=== PATIENT | female | born 1930 | race Caucasian/White ===

== ENCOUNTER 2019-04-27 12:58 | Inpatient (IN) ==
[2019-04-27 15:20] LABS: BASO# 0.01 X1000 (0.0-0.2); BASO% 0.1 % (0.0-0.8); EOS# 0.01 X1000 (0.0-0.7); EOS% 0.1 % (0.0-10.0); HEMATOCRIT 34.7 % (37.0-47.0); HEMOGLOBIN 11.1 g/dL (12.0-16.0); IMM GRAN# 0.01 X1000 (0.0-0.04); IMM GRAN% 0.1 % (0.0-0.5); LYMPH# 1.05 X1000 (1.2-3.4); LYMPH% 10.6 % (20.5-51.1); MCH 29.6 PG (27-31); MCV 92.5 FL (81-99); MONO# 0.66 X1000 (0.11-0.59); MONO% 6.6 % (1.7-9.3); MPV 10.6 FL (7.4-10.4); NEUT# 8.21 X1000 (1.4-6.5); NEUT% 82.5 % (42.2-75.2); PLT 178 X1000 (130-400); RBC 3.75 XMIL (4.2-5.4); RDW 13.6 % (11.5-14.5); WBC 9.95 X1000 (4.8-10.8)
[2019-04-27 15:44] LABS: ALBUMIN 4.8 g/dL (3.5-5.0); CALCIUM 10.1 mg/dL (8.8-10.2); CREATININE 1.9 mg/dL (0.5-0.9); POTASSIUM 4.5 mmol/L (3.5-5.1); TOTAL BILIRUBIN 0.4 mg/dL (0.20-1.00); TOTAL PROTEIN 7.6 g/dL (6.3-8.3)
--- NOTE | 2019-04-27 16:05 | PROVIDER DOCUMENTATION ---
This chart was entered by Libby Alfaro Scribe, acting as scribe for Renuka Monsalve MD. HPI-Abdominal Pain/GI Problem - General Chief Complaint: Abdominal Pain Stated Complaint: D/V Time Seen by Provider: 04/27/19 14:41 Source: patient, family Allergies/Adverse Reactions: Patient Allergies Allergy/AdvReac Type Severity Reaction Status Date / Time cyclobenzaprine Allergy Unknown Verified 04/27/19 13:23 [From Flexeril] lincomycin [From Lincocin] Allergy Unknown Verified 04/27/19 13:23 tetracycline Allergy Unknown Verified 04/27/19 13:23 butorphanol tartrate * AdvReac RASH Verified 10/04/18 00:31 [From Stadol] hyoscyamine sulfate * AdvReac VOMITING Verified 10/04/18 00:31 [From Levsin] pentazocine [From Talwin] AdvReac RASH Verified 10/04/18 00:31 prednisone AdvReac RASH Verified 10/04/18 00:31 Tricyclic Compounds AdvReac Unknown Verified 10/04/18 00:31 Home Medications: Home Medication List Medication Instructions Recorded Confirmed Last Taken Type Furosemide [Lasix] 60 mg PO DAILY 01/18/16 04/27/19 Unknown History Isosorbide Mononitrate [Isosorbide 30 mg PO QHS 01/18/16 04/27/19 Unknown History Mononitrate ER] Omeprazole 40 mg PO DAILY@0600 01/18/16 04/27/19 Unknown History Simvastatin 20 mg PO QHS 01/18/16 04/27/19 Unknown History Clonidine 0.3 mg TD DIRECTED 09/16/17 04/27/19 Unknown History Acetaminophen [Tylenol] 650 mg PO Q6H PRN PRN tablet 09/25/17 04/27/19 Unknown Rx Carvedilol [Coreg] 6.25 mg PO BID #60 tab 09/25/17 04/27/19 Unknown Rx Diltiazem HCl [Cardizem] 240 mg PO DAILY #30 tab 09/25/17 04/27/19 Unknown Rx Hydralazine [Apresoline] 10 mg PO Q8H #90 tab 09/25/17 04/27/19 Unknown Rx LISINOpril [Prinivil] 10 mg PO DAILY #30 tab 09/25/17 04/27/19 Unknown Rx Buspirone [Buspar] 15 mg PO TID 04/27/19 04/27/19 Unknown History - History of Present Illness-ABD Nature of Presenting Problems: 89 yowf presents to the ed with c/o suprapubic abd pain with n/v/d and diarrhea has bright red blood. pt sts onset was last night at 1999 and sx have improved but still present with rectal bleeding. pt is nontoxic in appearance Abdominal Pain Onset Location: reports: suprapubic Pain Radiation: reports: no radiation Quality of Pain: reports: cramping Severity in ED: reports: moderate Onset/Duration: reports: last night (1999) Timing: reports: improving, intermittent Activities at Onset: reports: light activity Exposure to sick contacts?: No Modifying Factors: improves with: nothing Associated Symptoms: reports: diarrhea (bloody), nausea, vomiting. denies: back/neck pain, chest pain, fever/chills, shortness of breath, trouble walking Last BM: this afternoon Dark Stools Present?: reports: bright red blood # of Diarrhea Episodes: 7 Rectal Pain: reports: known hemorrhoids # of Vomiting Episodes: 3 Emesis Description: reports: other (anything PO last night) Bruising or Bleeding Gums?: No Similar Symptoms Previously?: Yes Recently seen or treated by another doctor?: No Review of Systems - Adult - REVIEW OF SYSTEMS - ADULT Constitutional: denies: chills, fever Eyes: reports: no symptoms reported Ears, Nose, Mouth & Throat: reports: no symptoms reported Cardiovascular: denies: chest pain, palpitations, syncope Respiratory: denies: shortness of breath, wheezing Gastrointestinal: reports: see HPI, abdominal pain, diarrhea, nausea, rectal bleeding, vomiting Genitourinary: reports: no symptoms reported Musculoskeletal: denies: back pain, neck pain Integumentary: reports: no symptoms reported Neurological: denies: dizziness/vertigo, headache/migraines Psychiatric: reports: no symptoms reported Endocrine: reports: no symptoms reported Hematologic/Lymphatic: reports: no symptoms reported Allergic/Immunologic: reports: no symptoms reported All Other Systems: Reviewed and Negative Past History - Adult - PAST MEDICAL HISTORY-ADULT Review of Records: reports: Old Records Reviewed, Nursing Assessment Review, Medications Reviewed, Social history reviewed & non-contributory. Major Childhood Illnesses: reports: denies history Cardiovascular: reports: aortic disease, CAD, CHF, HTN, heart valve problem, hyperlipidemia, other (AAA) Respiratory: reports: denies history Gastrointestinal: reports: denies history Obstetrical/Gynecological: reports: denies history Genitourinary: reports: denies history Musculoskeletal: reports: arthritis, other (osteoporosis) Neurological: reports: headaches/migraines, other (Menieres dz) Endocrine/Immune: reports: denies history, thyroid disorder Other Conditions: reports: denies history, cataract/glaucoma - PRIOR SURGERIES/PROCEDURES Surgical/Procedure History: reports: BTL, orthopedic (extremity) (L ankle; R knee), other (L lung; cataracts) - IMMUNIZATION STATUS Childhood Immunizations: See Nurse Assessment Flu Vaccine: See Nurse Assessment - FAMILY HISTORY Family History: reviewed, not pertinent - SOCIAL HISTORY Smoking: denies Substance Use: denies Living Situation: family Physical Exam-General - PHYSICAL EXAM-ADULT Initial Vital Signs Reviewed: Yes - CONSTITUTIONAL General Appearance: appears well, alert, no apparent distress, thin - EYES Eyes: PERRL/EOMI, pink conjunctivae - HEAD, EARS, NOSE, MOUTH & THROAT HENMT: moist mucous membranes, normal ENT inspection - NECK Neck: non-tender, full range of motion, supple, normal inspection - RESPIRATORY Respiratory: chest non-tender, lungs clear, normal breath sounds - CARDIOVASCULAR Cardiovascular: normal peripheral pulses, regular rate, rhythm - CHEST (BREASTS) Chest/Breast: deferred - GASTROINTESTINAL (ABDOMEN) Abdominal Exam: normal bowel sounds, soft, no organomegaly, no pulsatile mass, guarding, tenderness. negative: rigid, rebound - GENITOURINARY Rectal Exam: blood streaked stool, hemorrhoids Hemoccult Exam: heme positive stool - LYMPHATIC Lymphatic: no adenopathy - MUSCULOSKELETAL Back Exam: normal inspection, no CVA tenderness, no vertebral tenderness Extremity: normal range of motion, non-tender, normal gait, normal inspection, no pedal edema, no calf tenderness, normal capillary refill - SKIN Integumentary: normal color, normal turgor, warm/dry - NEUROLOGIC Neurologic: grossly normal, no motor/sensory deficits - PSYCHIATRIC Psych/Mental Status: normal mood/affect, normal thought content, normal thought process, oriented x 3 Progress - PLAN OF CARE/RESULTS Progress/Plan/Lab Results: Vital Signs - 8 hr 04/27/19 13:19 Temperature 98.1 F Pulse Rate 60 Respiratory Rate 18 Blood Pressure 113/65 O2 Sat by Pulse Oximetry 98 Orders Category Date Time Status CT ABD/PELVIS W/IV CONT ONLY [CT] Stat Exams 04/27/19 14:51 Ordered AMYLASE [CHEM] Stat Lab 04/27/19 14:51 Uncollected CBC WITH ELECTRONIC DIFF [HEME] Stat Lab 04/27/19 14:51 Uncollected COMPREHENSIVE METABOLIC PANEL [CHEM] Stat Lab 04/27/19 14:51 Uncollected LACTATE, PLASMA [CHEM] Stat Lab 04/27/19 14:51 Uncollected LIPASE [CHEM] Stat Lab 04/27/19 14:51 Uncollected UA NIMS W/REFLEX CULT PL [URINALYSIS] Stat Lab 04/27/19 14:53 Uncollected Result Diagrams: 04/27/19 15:05 04/27/19 15:05 - REASSESSMENT Reassessment #1 Time Reassessed: 17:07 (pt is resting in bed) Status: improving - CT/MRI 1 CT Study: Abdomen, Pelvis Impression: See EMR Report (EXAM: CT ABDOMEN/PELVIS W/O CONTRAST HISTORY: abd pain TECHNIQUE: Routine unenhanced CT abdomen and pelvis. No enteric contrast. COMPARISON: None. FINDINGS: The lung bases show pulmonary emphysema and granulomata. Nonspecific increased attenuation posterior and medial right lower lobe. There is cardiomegaly. Evaluation of the solid visceral organs is limited by lack of intravenous contrast. Multiple hyperdense cysts bilateral kidneys. No hydronephrosis. Severe calcific atherosclerotic disease. There are hepatosplenic granulomata. Severe scoliotic deformity limits evaluation. There are apparent calcified gallstones. No definite bowel distention or free air. There is significant constipation. IMPRESSION: Severe scoliosis limits evaluation. Suspect cholelithiasis. Consider ultrasound if indicated. Constipation. No evidence for free air or bowel obstruction. This exam was performed using automated exposure control, adjustment of mA or kV according to patient size, and/or use of iterative reconstruction technique. Electronically signed by Kamla Muller 04/27/2019 4:50 PM 04/27/19 1650 Interpreting Physician: Kamla Muller MD Dictated Date/Time: 04/27/19 1648 cc: Renuka Monsalve MD; Mango Polanco MD) - CONSULTS/PCP/HOSPITALIST Notification #1 *Consult/PCP/Hospitalist*: DR VELASCO Time Discussed: 19:40 Consult Disposition: Will see in ED, Admit Departure - Departure Date of Disposition Decision: 04/27/19 Time of Disposition Decision: 17:55 DIAGNOSIS: GI bleeding, Abdominal pain Disposition: ADMITTED INPATIENT 09 Certified Medical Emergency: Emergent Condition: Stable Referrals and Follow-Ups: Mango Polanco MD [Primary Care Provider] - - Critical Care Note This patient required my direct & personal management of CC.: No Attestation - Physician/ FRANCIA Attestation Patient care was provided by Advanced Practice Provider:: No The physician spent face to face time with patient:: Yes Advanced Practice Provider documentation review:: Supervising physician onsite and consulted in the evaluation and care of this patient. The physician did have a face to face encounter with the patient. This chart was documented by the indicated scribe, (Libby Alfaro Scribe) and accurately reflects the services I performed and decisions made by me, Renuka Monsalve MD, as attested by the provider's signature.
--- NOTE | 2019-04-27 16:52 | Diag Imaging Result Doc PS360 ---
EXAM: CT ABDOMEN/PELVIS W/O CONTRAST HISTORY: abd pain TECHNIQUE: Routine unenhanced CT abdomen and pelvis. No enteric contrast. COMPARISON: None. FINDINGS: The lung bases show pulmonary emphysema and granulomata. Nonspecific increased attenuation posterior and medial right lower lobe. There is cardiomegaly. Evaluation of the solid visceral organs is limited by lack of intravenous contrast. Multiple hyperdense cysts bilateral kidneys. No hydronephrosis. Severe calcific atherosclerotic disease. There are hepatosplenic granulomata. Severe scoliotic deformity limits evaluation. There are apparent calcified gallstones. No definite bowel distention or free air. There is significant constipation. IMPRESSION: Severe scoliosis limits evaluation. Suspect cholelithiasis. Consider ultrasound if indicated. Constipation. No evidence for free air or bowel obstruction. This exam was performed using automated exposure control, adjustment of mA or kV according to patient size, and/or use of iterative reconstruction technique. Electronically signed by Kamla Muller 04/27/2019 4:50 PM
[2019-04-27 16:55] LABS: URINE BACTERIA 1+ /HFP; URINE EPITHELIAL CELLS <10 /HPF (<10)
[2019-04-27 16:56] LABS: BILIRUBIN URINE NEGATIVE (NEGATIVE); BLOOD URINE NEGATIVE (NEGATIVE); GLUCOSE URINE NEGATIVE (NEGATIVE); KETONE URINE NEGATIVE (NEGATIVE); LEUKOCYTES URINE NEGATIVE (NEGATIVE); NITRITE URINE NEGATIVE (NEGATIVE); PH URINE 6.5; PROTEIN URINE NEGATIVE (NEGATIVE); URINE CAST NONE SEEN /LPF; URINE CRYSTAL NONE SEEN /HPF; URINE SOURCE CLEAN CATCH; URINE WBC <10 /HPF (<10); URINE YEAST NONE SEEN /HPF; UROBILINOGEN URINE NORMAL
[2019-04-27 16:57] LABS: CLARITY CLEAR (CLEAR); COLOR YELLOW
[2019-04-27 19:37] LABS: HEMATOCRIT 33.2 % (37.0-47.0); HEMOGLOBIN 10.8 g/dL (12.0-16.0); MCH 29.8 PG (27-31); MCHC 32.5 g/dL (33-37); MCV 91.5 FL (81-99); MPV 10.6 FL (7.4-10.4); RBC 3.63 XMIL (4.2-5.4); RDW 13.4 % (11.5-14.5); WBC 8.67 X1000 (4.8-10.8)
[2019-04-27] MEDS ORDERED: TYLENOL PO PRN (20:27)
--- NOTE | 2019-04-27 20:27 | HISTORY AND PHYSICAL ---
CHIEF COMPLAINT: Abdominal pain. HISTORY OF PRESENT ILLNESS: The patient is a very pleasant 89-year-old female who presented to the ER with nausea, vomiting, diarrhea, and abdominal pain. States symptoms started yesterday and they continued to worsen and became more severe today. States that after the symptoms started, she did develop some blood in her stool. Notes that she has a history of hemorrhoids. No blood in her emesis. The blood is bright red. Denies any fevers or chills. Notes that she is really not kept anything down today due to the nausea. ALLERGIES: Flexeril, lincomycin, tetracycline, Stadol, Levsin causing vomiting, Talwin, prednisone causing a rash and tricyclic compounds. MEDICATIONS: Lasix, Imdur, omeprazole, simvastatin 20 mg, clonidine 0.3, Tylenol, Coreg, diltiazem 240, Apresoline 10 q.8, lisinopril, and BuSpar. PAST MEDICAL HISTORY: Hypertension, known coronary artery disease, congestive heart failure, systolic, hyperlipidemia. She has a history of an aortic abdominal aneurysm, osteoporosis, chronic arthritis, history of Mnire disease, hypothyroidism, cataracts. She has had a BTL, left ankle and right knee surgery. She has had cataract surgery. REVIEW OF SYSTEMS: As noted above. Denies any fevers, chills, cough, congestion. Denies any dysuria, frequency, or urgency. Has had diarrhea, some hematochezia. Denies any melena. Denies any weight loss, weight gain. Denies skin rashes. Denies any chest pain or palpitations. SOCIAL HISTORY: She lives at home. She does not smoke or drink. FAMILY HISTORY: Noncontributory given her current age. PHYSICAL EXAMINATION: VITAL SIGNS: Reviewed and stable. She is afebrile. Temperature 98 degrees, pulse 60, respiratory rate 18, BP 113/65. GENERAL: Patient is in no current respiratory distress. Very pleasant to talk with. HEENT: Normocephalic. NECK: Supple. CARDIOVASCULAR: Regular rate. No murmurs. CHEST: Clear. Nonlabored. No wheezing. ABDOMEN: Soft. Diffusely tender. No crackles. Nondistended. Positive bowel sounds. EXTREMITIES: Moves all extremities. No edema. NEUROLOGIC: No changes. ASSESSMENT: 1. Abdominal pain. 2. Nausea, vomiting, diarrhea, likely viral gastroenteritis. 3. Hematochezia, although hemoglobin and hematocrit is currently stable at 11 and 31. 4. Chronic renal failure with creatinine of 1.9. Her baseline is from 1.6 to 2 since 2016. PLAN: We are going to recheck patient's hemoglobin and hematocrit. Assuming it is stable, we are going to admit her to the hospital and follow. We will place her on IV fluids. Recheck her labs in the morning. If her hemoglobin and hematocrit does become unstable or she begins bleeding again, we will need to consult GI. We will restart her home medications. cc: Mohit Bridges MD
[2019-04-27] MEDS ORDERED: IMDUR PO SCH (21:00)
[2019-04-27] MEDS: COREG PO SCH (21:41)
[2019-04-27] MEDS: APRESOLINE PO SCH (21:41)
[2019-04-28] MEDS: APRESOLINE PO SCH ×2 (05:46→13:15)
[2019-04-28] MEDS ORDERED: PRILOSEC PO SCH (06:00)
[2019-04-28 06:37] LABS: EOS# 0.04 X1000 (0.0-0.7); EOS% 0.4 % (0.0-10.0); HEMATOCRIT 30.2 % (37.0-47.0); HEMOGLOBIN 9.6 g/dL (12.0-16.0); IMM GRAN# 0.01 X1000 (0.0-0.04); IMM GRAN% 0.1 % (0.0-0.5); LYMPH# 0.95 X1000 (1.2-3.4); LYMPH% 10.5 % (20.5-51.1); MCH 29.4 PG (27-31); MCHC 31.8 g/dL (33-37); MCV 92.6 FL (81-99); MONO# 0.94 X1000 (0.11-0.59); MONO% 10.3 % (1.7-9.3); MPV 10.7 FL (7.4-10.4); NEUT# 7.15 X1000 (1.4-6.5); NEUT% 78.7 % (42.2-75.2); PLT 152 X1000 (130-400); RBC 3.26 XMIL (4.2-5.4); RDW 13.4 % (11.5-14.5); WBC 9.09 X1000 (4.8-10.8)
[2019-04-28 07:05] LABS: ALBUMIN 3.6 g/dL (3.5-5.0); CALCIUM 9.5 mg/dL (8.8-10.2); CREATININE 1.9 mg/dL (0.5-0.9); POTASSIUM 4.3 mmol/L (3.5-5.1); TOTAL BILIRUBIN 0.3 mg/dL (0.20-1.00); TOTAL PROTEIN 6.2 g/dL (6.3-8.3)
[2019-04-28] MEDS: COREG PO SCH (08:48)
[2019-04-28] MEDS ORDERED: LASIX PO SCH (09:00)
[2019-04-28] MEDS ORDERED: PRINIVIL PO SCH (09:00)
[2019-04-28] MEDS ORDERED: BUSPAR PO SCH (09:00)
[2019-04-28] MEDS ORDERED: CARDIZEM CD PO SCH (09:00)
[2019-04-28 12:18] VITALS: BP 128/60
--- NOTE | 2019-04-29 02:53 | DISCHARGE SUMMARY ---
ADMISSION DATE: 04/27/2019 DISCHARGE DATE: 04/28/2019 ADDENDUM: Patient seen and examined by myself. Full note dictated and discussed with nurse practitioner. On discharge, patient is awake, alert. She has tolerated a full diet. Her hemoglobin and hematocrit have remained stable. She has had no further bleeding. Expect that her heme-positive was due to her known hemorrhoids and her diarrhea. Thankfully, both of these have improved and therefore she will be discharged home. cc: Mohit Bridges MD
[2019-05-02] MEDS ORDERED: CATAPRES-TTS-3 TD SCH (09:00)
== END 2019-04-28 14:17 | disposition home or self-care (01) | DRG 394 ==
LOC: P.ED 12:58 → P.MEDSURG 12:59
PROVIDERS: ATTEND Family Medicine
CPT/HCPCS: 74176; 80053; 81001; 82150; 83605; 83690; 83735; 84443; 85025; 85027; A9270